=== PATIENT | male | born 1950 | race Hispanic/Latino ===

== ENCOUNTER 2016-11-19 15:19 | Emergency (ER) | payer OTHER ==
[2016-11-19 16:37] LABS: BASO % 0.8 % (0.0-1.0); EOS % 0.8 % (0.0-3.0); LARGE UNSTAINED CELL # 0.1 K/mm3 (0.0-0.4); LARGE UNSTAINED CELL % 2.3 % (0.0-4.0); LYMPH # 1.5 K/mm3 (1.5-4.5); LYMPH % 25.9 % (24.0-44.0); MEAN CORPUSCULAR HEMOGLOBIN 28.3 pg (27.0-33.0); MEAN CORPUSCULAR HGB CONC 33.1 g/dl (32.0-36.5); MEAN CORPUSCULAR VOLUME 85.5 fl (80.0-96.0); MONO # 0.2 K/mm3 (0.0-0.8); MONO % 3.6 % (0.0-5.0); NEUTROPHILS # 3.5 K/mm3 (1.8-7.7); NEUTROPHILS % 66.6 % (36.0-66.0); PLATELET COUNT, AUTOMATED 207 k/mm3 (150-450); RED CELL DISTRIBUTION WIDTH 15.1 % (11.5-14.5); WHITE BLOOD COUNT 5.3 K/mm3 (4.0-10.0)
[2016-11-19 16:40] LABS: INR 1.01
[2016-11-19] MEDS ORDERED: ASPIRIN 81 MG CHEW TABLET As Ordered ONE (16:45)
[2016-11-19 16:50] LABS: ANION GAP 10 MEQ/L (8-16); BLOOD UREA NITROGEN 13 MG/DL (7-18); CALCIUM LEVEL 9.4 MG/DL (8.8-10.2); CARBON DIOXIDE LEVEL 25 MEQ/L (21-32); CHLORIDE LEVEL 105 MEQ/L (98-107); CREATININE FOR GFR 0.99 MG/DL (0.70-1.30); GLOMERULAR FILTRATION RATE > 60.0 (>49); GLUCOSE, FASTING 150 MG/DL (80-110); SODIUM LEVEL 140 MEQ/L (136-145)
--- NOTE | 2016-11-19 17:08 | REP ---
Clinical: Chest pain. Technique: PA and lateral. Comparison: None. Findings: Chronic-appearing changes suggested with superimposed bilateral scattered atelectasis. Likely chronic elevation of the right hemidiaphragm. No pneumothorax. No definite effusion. Skeletal structures intact. Visualized mediastinum and cardiac silhouette normal. Impression: Chronic-appearing changes with suspected superimposed scattered atelectasis. Signed by Jean Evans MD 11/19/2016 05:00 P
[2016-11-19] MEDS ORDERED: MECLIZINE 12.5 MG TAB As Ordered ONE (17:21)
--- NOTE | 2016-11-19 20:18 | EDDOCDS ---
Physician Documentation [facility] Name: Singh Villarreal Age: 66 yrs Sex: Male : 1950 Arrival Date: 11/19/2016 Time: 15:19 Bed D1 Private MD: Unknown, Family Dr Disposition: 11/19/16 20:03 Discharged to Home/Self Care. Impression: Vertigo of central origin, Chest pain, unspecified. - Condition is Stable. - Discharge Instructions: Nonspecific Chest Pain, Vertigo. - Prescriptions for Meclizine 25 mg Oral Tablet - take 1 tablet by ORAL route every 8 hours As needed; 30 tablet. - Medication Reconciliation, Local Pharmacy Hours form. - Follow up: Private Physician; When: Call to arrange an appointment; Reason: Recheck today's complaints, Continuance of care. Follow up: Lei Chavez MD; When: Call to arrange an appointment; Reason: Further diagnostic work-up, Continuance of care. - Problem is new. - Symptoms are unchanged. Historical: - Allergies: Lisinopril; - Home Meds: 1. metformin 850 mg Oral tab 1 tab 2 times per day 2. omeprazole 20 mg Oral cpDR 1 cap once daily 3. Lipitor 10 mg Oral tab 1 tab once daily - PMHx: Diabetes - NIDDM: controlled; GERD; High Cholesterol; - PSHx: nasal surgery; - Social history: Smoking status: Patient states was never smoker of tobacco. No barriers to communication noted, The patient speaks fluent [place] Lankan. - Family history: Not pertinent. - : The pt / caregiver states he / she is not on anticoagulants. Home medication list is obtained from the patient. - Exposure Risk Screening:: None identified. Vital Signs: 11/19 15:21 BP 161 / 81; Pulse 75; Resp 18 S; Temp 97.2; Pulse Ox 98% on R/A; Weight 87.09 kg / 192 dd6 lbs (R); Height 5 ft. 8 in. (172.72 cm) (R); 17:00 Pulse 68 MON; Pulse Ox 97% ; ko2 17:01 BP 178 / 90 (auto/); ko2 17:16 BP 172 / 86 (auto/); ko2 17:16 Pulse 70 MON; Pulse Ox 97% ; ko2 17:31 BP 164 / 83 (auto/); ko2 17:31 Pulse 68 MON; Pulse Ox 97% ; ko2 17:46 BP 180 / 86 (auto/); ko2 17:46 Pulse 68 MON; Pulse Ox 98% ; ko2 18:01 BP 149 / 85 (auto/); ko2 18:01 Pulse 64 MON; Pulse Ox 98% ; ko2 18:15 Pulse 70 MON; Pulse Ox 97% ; ko2 18:16 BP 160 / 90 (auto/); ko2 18:31 BP 156 / 88 (auto/); ko2 18:31 Pulse 62 MON; Pulse Ox 96% ; ko2 19:00 Pulse 66 MON; Pulse Ox 97% ; ko2 19:01 BP 143 / 76 (auto/); ko2 19:02 BP 145 / 78 (auto/); ko2 19:02 Pulse 66 MON; Pulse Ox 96% ; ko2 19:16 Pulse 68 MON; Pulse Ox 96% ; ko2 19:17 BP 153 / 77 (auto/); ko2 19:32 BP 142 / 68 (auto/); ko2 19:32 Pulse 66 MON; Pulse Ox 96% ; ko2 20:07 BP 144 / 75 RA Sitting (auto/reg); Pulse 69 MON; Resp 22 S; Temp 97.2(T); Pulse Ox 97% cln on R/A; Pain 0/10; 15:21 Body Mass Index 29.19 (87.09 kg, 172.72 cm) dd6 MDM: 15:26 ECG WITH READING ER PHYS+CARDIAG ordered. EDMS 16:29 Aspirin Chewable Tablet 324 mg PO once ordered. ke 16:29 Rivet Catcher/Pulse Ox/q 30 min VS ordered. ke 16:29 IV Saline Lock ordered. ke 16:29 Rhythm Strip to chart ordered. ke 16:29 Undress patient appropriately for examination ordered. ke 16:29 Accucheck ordered. ke 16:29 NS 0.9% 1000 ml IV at 100 mL/hr continuous ordered. ke 16:30 Basic Metabolic Profile Ordered. EDMS 16:30 CBC with Diff Ordered. EDMS 16:30 Cardiac Injury Profile Ordered. EDMS 16:30 Prothrombin Time Profile\E\INR Ordered. EDMS 16:30 Troponin Ordered. EDMS 16:31 Chest, 2 View (pa\E\lat) Ordered. EDMS 17:02 Basic Metabolic Profile Reviewed. ke 17:02 CBC with Diff Reviewed. ke 17:02 Cardiac Injury Profile Reviewed. ke 17:02 Prothrombin Time Profile\E\INR Reviewed. ke 17:02 Troponin Reviewed. ke 17:03 Meclizine 50 mg PO once ordered. ke 17:04 Redraw CIP &Troponin (put time in details section) ordered. ke 17:04 Repeat EKG (put time details section) ordered. ke 17:05 Redraw CIP &Troponin (put time in details section) complete. deg 17:05 Repeat EKG (put time details section) complete. deg 17:06 ECG WITH READING ER PHYS ordered. EDMS 17:07 CARDIAC MARKER PANEL Ordered. EDMS 17:52 Financial registration complete. gjb 18:00 [facility] Payment Agreement was scanned into Transfer [employer] and attached to record. gjb 19:59 Fingerstick Blood Sugar Reviewed. ke 19:59 CARDIAC MARKER PANEL Reviewed. ke 19:59 Chest, 2 View (pa\E\lat) Reviewed. ke Administered Medications: 16:54 Drug: NS 0.9% 1000 ml [sodium chloride 0.9 % intravenous solution] Route: IV; Rate: 100 hs1 mL/hr; Site: right antecubital; 20:15 Follow up: Rate change bolus; IV Status: Completed infusion; IV Intake: 1000ml ka4 16:55 Drug: Aspirin 324 mg [aspirin 81 mg chewable tablet (4 tabs)] Route: PO; hs1 17:24 Drug: Meclizine 50 mg [meclizine 12.5 mg tablet (4 tabs)] Route: PO; kc3 20:15 Follow up: Response: No Adverse Reaction ka4 Signatures: Dispatcher [employer] EDJulia Avina, Salesperson [employer] deg Castillo Atkins, MEDICAL BILLING SUPERVISOR MEDICAL BILLING SUPERVISORKelly Schuler LPN LPN ka4 Blanca Maria,RN RN ms18 Jemima Maguireb Karen Sutton RN hs1 Lorelei Hardin RN kc3 The chart was reviewed and I authenticate all verbal orders and agree with the evaluation and treatment provided.Attachments: 18:00 [facility] Payment Agreement gj MTDD
--- NOTE | 2016-11-19 20:18 | EDDOCDS ---
Nurse's Notes [facility] Name: Singh Villarreal Age: 66 yrs Sex: Male : 1950 Arrival Date: 11/19/2016 Time: 15:19 Bed D1 Private MD: Unknown, Family Dr Diagnosis: Vertigo of central origin;Chest pain, unspecified Presentation: 11/19 15:26 Presenting complaint: Patient states: he is c/o L sided CP, dry mouth, dizziness that ms18 all started this morning. Aspirin was not taken prior to arrival. Adult Sepsis Screening: The patient does not have new or worsening altered mentation. Patient's respiratory rate is less than 22. Systolic blood pressure is greater than 100. Patient has a qSOFA score of 0- Negative Sepsis Screen. Suicide/Homicide risk assessment- the patient denies having any suicidal and/or homicidal ideations and does not present with any other emotional, behavioral or mental health complaints. 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 Transition of care: patient was not received from another setting of care. 15:26 Acuity: ISHAN Level 2 ms18 15:26 Method Of Arrival: Walkin/Carried/Asstd ms18 15:34 Red Flag criteria, patient assessed and taken directly to a bed. ms18 Triage Assessment: 15:32 General: Appears in no apparent distress, comfortable, Behavior is appropriate for age, ms18 cooperative. Pain: Denies pain. Neurological: Level of Consciousness is awake, alert, obeys commands, Oriented to person, place, time. Cardiovascular: Chest pain is described as mild, quality is pressure, radiates Does not radiate. episodes are continuous began this morning. Respiratory: Airway is patent Respiratory effort is even, unlabored, Denies shortness of breath. Derm: Skin is pink, warm & dry. Historical: - Allergies: Lisinopril; - Home Meds: 1. metformin 850 mg Oral tab 1 tab 2 times per day 2. omeprazole 20 mg Oral cpDR 1 cap once daily 3. Lipitor 10 mg Oral tab 1 tab once daily - PMHx: Diabetes - NIDDM: controlled; GERD; High Cholesterol; - PSHx: nasal surgery; - Social history: Smoking status: Patient states was never smoker of tobacco. No barriers to communication noted, The patient speaks fluent [place] African. - Family history: Not pertinent. - : The pt / caregiver states he / she is not on anticoagulants. Home medication list is obtained from the patient. - Exposure Risk Screening:: None identified. Screenin:40 Screening information is obtained from the patient. Fall risk: No risks identified. hs1 Assistance ADL's: requires no assistance with activities of daily living. Abuse/DV Screen: The patient / caregiver reports he/she is: not in a situation that causes fear, pain or injury. Nutritional screening: No deficits noted. Advance Directives: Currently, there is no health care proxy. home support is adequate. Assessment: 15:30 General: Appears comfortable, Behavior is appropriate for age, cooperative. hs1 Neurological: Level of Consciousness is awake, alert, obeys commands, Oriented to person, place, time, Reports "feeling like my equilibrium is off". Cardiovascular: Rhythm is sinus rhythm No ectopy. Chest pain is described as mild, quality is indigestion. Respiratory: Airway is patent Respiratory effort is even, unlabored, Respiratory pattern is regular, symmetrical. : No deficits noted. Derm: Skin is pink, warm & dry. normal. 16:42 General: Appears in no apparent distress, comfortable, Behavior is appropriate for age, hs1 cooperative, Resting on stretcher awaiting further plan of care. Pt states mild pain in chest, not very bothersome however feeling woozy every time he moves his neck and changes his view. . 17:15 Reassessment: Patient appears in no apparent distress at this time. Pt aware of plan hs1 and is agreeable to all interventions. Pt still reports pain 3/10 mild discomfort in chest. Sinus rhythm on monitor. . 18:00 Reassessment: Patient appears in no apparent distress at this time. Patient states hs1 feeling better. Patient states symptoms have improved. Pt feeling better after receiving medications. . 19:42 General: Appears in no apparent distress, comfortable, Behavior is appropriate for age, ko2 cooperative. Pain: Denies pain. Neurological: Level of Consciousness is awake, alert, obeys commands, Reports the dizziness has gotten better since taking the medication but pt is still a little dizzy. Cardiovascular: Rhythm is sinus rhythm No ectopy. Chest pain is denied. Respiratory: Airway is patent Respiratory effort is even, unlabored. Derm: Skin is normal. Vital Signs: 15:21 BP 161 / 81; Pulse 75; Resp 18 S; Temp 97.2; Pulse Ox 98% on R/A; Weight 87.09 kg (R); dd6 Height 5 ft. 8 in. (172.72 cm) (R); 17:00 Pulse 68 MON; Pulse Ox 97% ; ko2 17:01 BP 178 / 90 (auto/); ko2 17:16 BP 172 / 86 (auto/); ko2 17:16 Pulse 70 MON; Pulse Ox 97% ; ko2 17:31 BP 164 / 83 (auto/); ko2 17:31 Pulse 68 MON; Pulse Ox 97% ; ko2 17:46 BP 180 / 86 (auto/); ko2 17:46 Pulse 68 MON; Pulse Ox 98% ; ko2 18:01 BP 149 / 85 (auto/); ko2 18:01 Pulse 64 MON; Pulse Ox 98% ; ko2 18:15 Pulse 70 MON; Pulse Ox 97% ; ko2 18:16 BP 160 / 90 (auto/); ko2 18:31 BP 156 / 88 (auto/); ko2 18:31 Pulse 62 MON; Pulse Ox 96% ; ko2 19:00 Pulse 66 MON; Pulse Ox 97% ; ko2 19:01 BP 143 / 76 (auto/); ko2 19:02 BP 145 / 78 (auto/); ko2 19:02 Pulse 66 MON; Pulse Ox 96% ; ko2 19:16 Pulse 68 MON; Pulse Ox 96% ; ko2 19:17 BP 153 / 77 (auto/); ko2 19:32 BP 142 / 68 (auto/); ko2 19:32 Pulse 66 MON; Pulse Ox 96% ; ko2 20:07 BP 144 / 75 RA Sitting (auto/reg); Pulse 69 MON; Resp 22 S; Temp 97.2(T); Pulse Ox 97% cln on R/A; Pain 0/10; 15:21 Body Mass Index 29.19 (87.09 kg, 172.72 cm) dd6 Vitals: 15:21 Log In Time: November 19, 2016 at 15:19. RN notified that patient meets Red Flag dd6 criteria. ED Course: 15:20 Patient visited by Quinn Rapp PCA. dd6 15:20 Unknown, Family Dr is Private Physician. dd6 15:20 Patient moved to Waiting dd6 15:23 Patient moved to 9 ms18 15:25 Patient visited by Blanca Maria RN. ms18 15:27 Triage Initiated ms18 15:27 Placed in gown. Bed in low position. Call light in reach. Side rails up X2. nb2 15:27 EKG done. (by ED staff). Reviewed by Katia Delgado MD. nb2 15:37 Patient visited by Saskia Robbins. nb2 16:19 [facility] ke 16:19 Patient visited by Castillo Atkins FNP. ke 16:19 Patient visited by Castillo Atkins FNP. ke 16:41 Patient visited by Castillo Atkins FNP. ke 17:04 Patient visited by Castillo Atkins FNP. ke 17:26 Chest, 2 View (pa\\E\\lat) Returned. EDMS 17:35 Patient visited by Castillo Atkins FNP. ke 18:00 [facility] Payment Agreement was scanned into [employer] and attached to record. gjb 18:06 Patient visited by Castillo Atkins FNP. ke 18:35 Patient name changed from Singh\\S\\\\S\\Villarreal\\S\\ to Singh\\S\\A\\S\\Villarreal. EDMS 18:36 Patient visited by Castillo Atkins FNP. ke 18:52 CARDIAC MARKER PANEL Sent. jmk 18:57 EKG done. (by ED staff). Reviewed by Castillo MESA. nb2 19:02 Patient visited by Saskia Robbins. nb2 19:03 Lesa Dodson RN is Primary Nurse. ko2 19:42 Patient visited by Lesa Dodson,SERGIO. ko2 19:44 Patient visited by Lesa Dodson,SERGIO. ko2 20:02 Lei Chavez MD is Referral Physician. ke 20:05 Patient visited by Amanda Navarro PCA. cln 20:08 Patient visited by Amanda Navarro PCA. cln 20:16 The patient / caregiver is instructed regarding the plan of care and ED course. Cardiac ka4 monitor on. Pulse ox on. 20:16 Discontinued IV lock intact, bleeding controlled, pressure dressing applied, No ka4 redness/swelling at site. Discontinued removed from right antecubital. No procedures done that require assistance. 20:17 Patient moved to D1 cz Administered Medications: 16:54 Drug: NS 0.9% 1000 ml [sodium chloride 0.9 % intravenous solution] Route: IV; Rate: 100 hs1 mL/hr; Site: right antecubital; 20:15 Follow up: Rate change bolus; IV Status: Completed infusion; IV Intake: 1000ml ka4 16:55 Drug: Aspirin 324 mg [aspirin 81 mg chewable tablet (4 tabs)] Route: PO; hs1 17:24 Drug: Meclizine 50 mg [meclizine 12.5 mg tablet (4 tabs)] Route: PO; kc3 20:15 Follow up: Response: No Adverse Reaction ka4 Intake: 20:15 IV: 1000.00ml; Total: 1000.00ml. ka4 Order Results: Lab Order: Basic Metabolic Profile; BOO 11/19/16 15:35 Test: GLUCOSE, FASTING; Value: 150; Range: 80-110; Abnormal: Above high normal; Units: MG/DL; Status: F Test: BLOOD UREA NITROGEN; Value: 13; Range: 7-18; Units: MG/DL; Status: F Test: CREATININE FOR GFR; Value: 0.99; Range: 0.70-1.30; Units: MG/DL; Status: F Test: GLOMERULAR FILTRATION RATE; Value: > 60.0; Range: >49; Status: F Test: SODIUM LEVEL; Value: 140; Range: 136-145; Units: MEQ/L; Status: F Test: POTASSIUM SERUM; Value: 4.0; Range: 3.5-5.1; Units: MEQ/L; Status: F Test: CHLORIDE LEVEL; Value: 105; Range: 98-107; Units: MEQ/L; Status: F Test: CARBON DIOXIDE LEVEL; Value: 25; Range: 21-32; Units: MEQ/L; Status: F Test: ANION GAP; Value: 10; Range: 8-16; Units: MEQ/L; Status: F Test: CALCIUM LEVEL; Value: 9.4; Range: 8.8-10.2; Units: MG/DL; Status: F Test Note: ; Units are mL/min/1.73 m2 Chronic Kidney Disease Staging per NKF: Stage I & II GFR >=60 Normal to Mildly Decreased Stage III GFR 30-59 Moderately Decreased Stage IV GFR 15-29 Severely Decreased Stage V GFR <15 Very Little GFR Left ESRD GFR <15 on MAGAZINE JOURNALIST Lab Order: CBC with Diff; MOISE'M 11/19/16 15:35 Test: WHITE BLOOD COUNT; Value: 5.3; Range: 4.0-10.0; Units: K/mm3; Status: F Test: RED BLOOD COUNT; Value: 5.00; Range: 4.30-6.10; Units: M/mm3; Status: F Test: HEMOGLOBIN; Value: 14.2; Range: 14.0-18.0; Units: g/dl; Status: F Test: HEMATOCRIT; Value: 42.8; Range: 42.0-52.0; Units: %; Status: F Test: MEAN CORPUSCULAR VOLUME; Value: 85.5; Range: 80.0-96.0; Units: fl; Status: F Test: MEAN CORPUSCULAR HEMOGLOBIN; Value: 28.3; Range: 27.0-33.0; Units: pg; Status: F Test: MEAN CORPUSCULAR HGB CONC; Value: 33.1; Range: 32.0-36.5; Units: g/dl; Status: F Test: RED CELL DISTRIBUTION WIDTH; Value: 15.1; Range: 11.5-14.5; Abnormal: Above high normal; Units: %; Status: F Test: PLATELET COUNT, AUTOMATED; Value: 207; Range: 150-450; Units: k/mm3; Status: F Test: NEUTROPHILS %; Value: 66.6; Range: 36.0-66.0; Abnormal: Above high normal; Units: %; Status: F Test: LYMPH %; Value: 25.9; Range: 24.0-44.0; Units: %; Status: F Test: MONO %; Value: 3.6; Range: 0.0-5.0; Units: %; Status: F Test: EOS %; Value: 0.8; Range: 0.0-3.0; Units: %; Status: F Test: BASO %; Value: 0.8; Range: 0.0-1.0; Units: %; Status: F Test: LARGE UNSTAINED CELL %; Value: 2.3; Range: 0.0-4.0; Units: %; Status: F Test: NEUTROPHILS #; Value: 3.5; Range: 1.8-7.7; Units: K/mm3; Status: F Test: LYMPH #; Value: 1.5; Range: 1.5-4.5; Units: K/mm3; Status: F Test: MONO #; Value: 0.2; Range: 0.0-0.8; Units: K/mm3; Status: F Test: EOS #; Value: 0.0; Range: 0.0-0.50; Units: K/mm3; Status: F Test: BASO #; Value: 0.0; Range: 0.0-0.2; Units: K/mm3; Status: F Test: LARGE UNSTAINED CELL #; Value: 0.1; Range: 0.0-0.4; Units: K/mm3; Status: F Lab Order: Cardiac Injury Profile; SPEC' 11/19/16 15:35 Test: CPK CREATINE PHOSPHOKINASE; Value: 216; Range: 39-308; Units: U/L; Status: F Test: CK-MB VALUE MASS; Value: 1.6; Range: 0.0-3.6; Units: NG/ML; Status: F Test: MB/CK RELATIVE INDEX; Value: 0.74; Range: < OR =4; Status: F Test Note: ; DIAGNOSIS CRITERIA MMB ng/ml Relative Index (RI) NON-AMI < or = 5 N/A GOMEZ ZONE > 5 < or = 4 AMI > 5 > 4 Lab Order: Prothrombin Time Profile\\E\\INR; SPEC' 11/19/16 15:35 Test: PROTHROMBIN TIME; Value: 13.4; Range: 12.3-14.5; Units: SECONDS; Status: F Test: INR; Value: 1.01; Status: F Test Note: ; THERAPUTIC HUMAN INR VALUES INDICATIONS NORMAL RANGES PROPHYLAXIS/TREATMENT OF: VENOUS THROMBOSIS 2.0-3.0 PULMONARY EMBOLISM 2.0-3.0 PREVENTION OF SYSTEMIC EMBOLISM FROM: TISSUE HEART VALVES 2.0-3.0 ACUTE MYOCARDIAL INFARCTION 2.0-3.0 VALVULAR HEART DISEASE 2.0-3.0 ATRIAL FIBRILLATION 2.0-3.0 MECHANICAL VALVES(HIGH RISK) 2.5-3.5 RECURRENT MYOCARDIAL INFARCTION 2.5-3.5 Lab Order: Troponin; [facility]' 11/19/16 15:35 Test: TROPONIN I; Value: < 0.02; Range: < 0.10; Units: NG/ML; Status: F Test Note: ; Troponin I Reference Interval for Siemens [place] LOCI: 99th Percentile= 0.00-0.045 ng/ml Risk Stratification: <= 0.10 ng/ml Decreased Risk for Adverse Clinical Events. 0.10-1.50 ng/ml Increased Risk for Adverse Clinical Events. Evaluation of additional criterion and/or repeat testing in 2-6 hours is suggested to rule out myocardial damage. >= 1.50 ng/ml Indicative of Myocardial Injury. Lab Order: CARDIAC MARKER PANEL; [facility] 11/19/16 18:50 Test: CPK CREATINE PHOSPHOKINASE; Value: 174; Range: 39-308; Units: U/L; Status: F Test: CK-MB VALUE MASS; Value: 1.5; Range: 0.0-3.6; Units: NG/ML; Status: F Test: MB/CK RELATIVE INDEX; Value: 0.86; Range: < OR =4; Status: F Test: TROPONIN I; Value: < 0.02; Range: < 0.10; Units: NG/ML; Status: F Test Note: ; DIAGNOSIS CRITERIA MMB ng/ml Relative Index (RI) NON-AMI < or = 5 N/A GOMEZ ZONE > 5 < or = 4 AMI > 5 > 4 Lab Order: Fingerstick Blood Sugar; [facility] 11/19/16 17:01 Test: BEDSIDE GLUCOSE; Value: 120; Range: 80-115; Abnormal: Above high normal; Units: MG/DL; Status: F Radiology Order: Chest, 2 View (pa\\E\\lat) Test: Chest, 2 View (pa\\E\\lat) REASON FOR EXAMINATION: Chest Pain; Clinical: Chest pain.; ; Technique: PA and lateral.; ; Comparison: None.; ; Findings:; Chronic-appearing changes suggested with superimposed bilateral scattered; atelectasis. Likely chronic elevation of the right hemidiaphragm. No; pneumothorax. No definite effusion. Skeletal structures intact. Visualized; mediastinum and cardiac silhouette normal.; ; Impression:; Chronic-appearing changes with suspected superimposed scattered atelectasis.; ; ; Signed by; Jean Evans MD 11/19/2016 05:00 P; Outcome: 20:03 Discharge ordered by Provider. ke 20:14 Discharge Assessment: Patient awake, alert and oriented x 3. No cognitive and/or ka4 functional deficits noted. Patient verbalized understanding of disposition instructions. patient administered narcotics - no. The following High Risk Discharge criteria are identified: None. Discharged to home ambulatory. Condition: good. Discharge instructions given to patient, Instructed on discharge instructions, follow up and referral plans. medication usage, Demonstrated understanding of instructions, medications, Pt was receptive of discharge instructions/ teaching. Property :Personal belongings accompany Pt. 20:16 No special radiology studies were completed. ka4 20:17 Patient left the ED. ka4 Signatures: Dispatcher [employer] EDMS Sharath Martinez,RN RN Moris Gonzalez, RN RN cz Castillo Atkins, PHD INTERNSHIP PHD INTERNSHIP Quinn Rich, [employer] FIELD TECHNICIAN [employer] FIELD TECHNICIAN dd6 Karen Sutton RN RN hs1 Kelly Redding LPN SCIENTIFIC SOFTWARE ENGINEER ka4 Lesa Dodson,RN RN ko2 Blanca Maria,RN RN ms18 Lorelei Hardin,RN RN tanya3 Jemima Maguire Crystal, [employer] FIELD TECHNICIAN [employer] FIELD TECHNICIAN cln Saskia Robbins2 MTDD
--- NOTE | 2016-11-20 08:08 | ECGEPIP ---
Stationary ECG Study [facility] - ED Test Date: 2016-11-19 Pat Name: JIHAN FRANCO Department: Room: - Gender: M Project Architect: ledy : 1950 Requested By: FADUMO Jeff Order Number: [id number] Reading MD: Melanie Mayo Measurements Intervals [place] Rate: 73 P: 7 WA: 160 QRS: -5 QRSD: 97 T: 4 QT: 402 QTc: 444 Interpretive Statements SINUS RHYTHM MODERATE VOLTAGE CRITERIA FOR LVH, CONSIDER NORMAL VARIANT INFERIOR MYOCARDIAL INFARCTION, PROBABLY OLD NSTTW ABNORMALITY NO PRIOR FOR COMPARISON Electronically Signed On 11-20-2016 8:08:12 EST by Melanie Mayo
--- NOTE | 2016-11-20 08:12 | ECGEPIP ---
Stationary ECG Study [facility] - ED Test Date: 2016-11-19 Pat Name: JIHAN FRANCO Department: Room: - Gender: M Avian Keeper: ledy : 1950 Requested By: VAUGHN MESA Order Number: [id number] Reading MD: Melanie Mayo Measurements Intervals [place] Rate: 63 P: 18 VT: 201 QRS: -5 QRSD: 92 T: 11 QT: 421 QTc: 433 Interpretive Statements SINUS RHYTHM MODERATE VOLTAGE CRITERIA FOR LVH, CONSIDER NORMAL VARIANT ?INFERIOR RI, OLD NSTTW ABNORMALITY DECREASED RATE 11/19/16 Electronically Signed On 11-20-2016 8:12:27 EST by Melanie Mayo
--- NOTE | 2016-11-21 21:18 | EDDOCDS ---
Physician Documentation [facility] Name: Singh Villarreal Age: 66 yrs Sex: Male : 1950 Arrival Date: 11/19/2016 Time: 15:19 Bed D1 Private MD: Unknown, Family Dr Disposition: 11/19/16 20:03 Discharged to Home/Self Care. Impression: Vertigo of central origin, Chest pain, unspecified. - Condition is Stable. - Discharge Instructions: Nonspecific Chest Pain, Vertigo. - Prescriptions for Meclizine 25 mg Oral Tablet - take 1 tablet by ORAL route every 8 hours As needed; 30 tablet. - Medication Reconciliation, Local Pharmacy Hours form. - Follow up: Private Physician; When: Call to arrange an appointment; Reason: Recheck today's complaints, Continuance of care. Follow up: Lei Chavez MD; When: Call to arrange an appointment; Reason: Further diagnostic work-up, Continuance of care. - Problem is new. - Symptoms are unchanged. Historical: - Allergies: Lisinopril; - Home Meds: 1. metformin 850 mg Oral tab 1 tab 2 times per day 2. omeprazole 20 mg Oral cpDR 1 cap once daily 3. Lipitor 10 mg Oral tab 1 tab once daily - PMHx: Diabetes - NIDDM: controlled; GERD; High Cholesterol; - PSHx: nasal surgery; - Social history: Smoking status: Patient states was never smoker of tobacco. No barriers to communication noted, The patient speaks fluent Faroese. - Family history: Not pertinent. - : The pt / caregiver states he / she is not on anticoagulants. Home medication list is obtained from the patient. - Exposure Risk Screening:: None identified. Vital Signs: 11/19 15:21 BP 161 / 81; Pulse 75; Resp 18 S; Temp 97.2; Pulse Ox 98% on R/A; Weight 87.09 kg / 192 dd6 lbs (R); Height 5 ft. 8 in. (172.72 cm) (R); 17:00 Pulse 68 MON; Pulse Ox 97% ; ko2 17:01 BP 178 / 90 (auto/); ko2 17:16 BP 172 / 86 (auto/); ko2 17:16 Pulse 70 MON; Pulse Ox 97% ; ko2 17:31 BP 164 / 83 (auto/); ko2 17:31 Pulse 68 MON; Pulse Ox 97% ; ko2 17:46 BP 180 / 86 (auto/); ko2 17:46 Pulse 68 MON; Pulse Ox 98% ; ko2 18:01 BP 149 / 85 (auto/); ko2 18:01 Pulse 64 MON; Pulse Ox 98% ; ko2 18:15 Pulse 70 MON; Pulse Ox 97% ; ko2 18:16 BP 160 / 90 (auto/); ko2 18:31 BP 156 / 88 (auto/); ko2 18:31 Pulse 62 MON; Pulse Ox 96% ; ko2 19:00 Pulse 66 MON; Pulse Ox 97% ; ko2 19:01 BP 143 / 76 (auto/); ko2 19:02 BP 145 / 78 (auto/); ko2 19:02 Pulse 66 MON; Pulse Ox 96% ; ko2 19:16 Pulse 68 MON; Pulse Ox 96% ; ko2 19:17 BP 153 / 77 (auto/); ko2 19:32 BP 142 / 68 (auto/); ko2 19:32 Pulse 66 MON; Pulse Ox 96% ; ko2 20:07 BP 144 / 75 RA Sitting (auto/reg); Pulse 69 MON; Resp 22 S; Temp 97.2(T); Pulse Ox 97% cln on R/A; Pain 0/10; 15:21 Body Mass Index 29.19 (87.09 kg, 172.72 cm) dd6 MDM: 15:26 ECG WITH READING ER PHYS+CARDIAG ordered. EDMS 16:29 Aspirin Chewable Tablet 324 mg PO once ordered. ke 16:29 Compressed Gas Equipment Mechanic/Pulse Ox/q 30 min VS ordered. ke 16:29 IV Saline Lock ordered. ke 16:29 Rhythm Strip to chart ordered. ke 16:29 Undress patient appropriately for examination ordered. ke 16:29 Accucheck ordered. ke 16:29 NS 0.9% 1000 ml IV at 100 mL/hr continuous ordered. ke 16:30 Basic Metabolic Profile Ordered. EDMS 16:30 CBC with Diff Ordered. EDMS 16:30 Cardiac Injury Profile Ordered. EDMS 16:30 Prothrombin Time Profile\E\INR Ordered. EDMS 16:30 Troponin Ordered. EDMS 16:31 Chest, 2 View (pa\E\lat) Ordered. EDMS 17:02 Basic Metabolic Profile Reviewed. ke 17:02 CBC with Diff Reviewed. ke 17:02 Cardiac Injury Profile Reviewed. ke 17:02 Prothrombin Time Profile\E\INR Reviewed. ke 17:02 Troponin Reviewed. ke 17:03 Meclizine 50 mg PO once ordered. ke 17:04 Redraw CIP &Troponin (put time in details section) ordered. ke 17:04 Repeat EKG (put time details section) ordered. ke 17:05 Redraw CIP &Troponin (put time in details section) complete. deg 17:05 Repeat EKG (put time details section) complete. deg 17:06 ECG WITH READING ER PHYS ordered. EDMS 17:07 CARDIAC MARKER PANEL Ordered. EDMS 17:52 Financial registration complete. gjb 18:00 [facility] [place] Payment Agreement was scanned into [employer] and attached to record. gjb 19:59 Fingerstick Blood Sugar Reviewed. ke 19:59 CARDIAC MARKER PANEL Reviewed. ke 19:59 Chest, 2 View (pa\E\lat) Reviewed. ke 11/20 03:47 T-Sheet-- Draft Copy was scanned into [employer] and attached to record. hs2 10:26 ECG/EKG was scanned into [employer] and attached to record. gb Administered Medications: 11/19 16:54 Drug: NS 0.9% 1000 ml [sodium chloride 0.9 % intravenous solution] Route: IV; Rate: 100 hs1 mL/hr; Site: right antecubital; 20:15 Follow up: Rate change bolus; IV Status: Completed infusion; IV Intake: 1000ml ka4 16:55 Drug: Aspirin 324 mg [aspirin 81 mg chewable tablet (4 tabs)] Route: PO; hs1 17:24 Drug: Meclizine 50 mg [meclizine 12.5 mg tablet (4 tabs)] Route: PO; kc3 20:15 Follow up: Response: No Adverse Reaction ka4 Signatures: Dispatcher [employer] EDMS Julia Baltazar, Medical Records Analyst Unit deg Malaika Dubon, Reg Reg gb Castillo Atkins, POKER SUPERVISOR POKER SUPERVISOR Kelly Wallace,STEEL CHECKER STEEL CHECKER ka4 Blanca Maria,SERGIO RN ms18 Jemima Maguire gjb Elizabeth Breaux, Reg Reg hs2 Karen Sutton RN hs1 Lorelei Hardin RN kc3 The chart was reviewed and I authenticate all verbal orders and agree with the evaluation and treatment provided.Attachments: 18:00 [facility] Payment Agreement gjb 11/20 03:47 T-Sheet-- Draft Copy hs2 10:26 ECG/EKG gb Chart Complete MTDD
--- NOTE | 2016-11-21 21:18 | EDDOCDS ---
Nurse's Notes [facility] Name: Singh Villarreal Age: 66 yrs Sex: Male : 1950 Arrival Date: 11/19/2016 Time: 15:19 Bed D1 Private MD: Unknown, Family Dr Diagnosis: Vertigo of central origin;Chest pain, unspecified Presentation: 11/19 15:26 Presenting complaint: Patient states: he is c/o L sided CP, dry mouth, dizziness that ms18 all started this morning. Aspirin was not taken prior to arrival. Adult Sepsis Screening: The patient does not have new or worsening altered mentation. Patient's respiratory rate is less than 22. Systolic blood pressure is greater than 100. Patient has a qSOFA score of 0- Negative Sepsis Screen. Suicide/Homicide risk assessment- the patient denies having any suicidal and/or homicidal ideations and does not present with any other emotional, behavioral or mental health complaints. Status: Patient is not a dietary services director or dependent. Transition of care: patient was not received from another setting of care. 15:26 Acuity: ISHAN Level 2 ms18 15:26 Method Of Arrival: Walkin/Carried/Asstd ms18 15:34 Red Flag criteria, patient assessed and taken directly to a bed. ms18 Triage Assessment: 15:32 General: Appears in no apparent distress, comfortable, Behavior is appropriate for age, ms18 cooperative. Pain: Denies pain. Neurological: Level of Consciousness is awake, alert, obeys commands, Oriented to person, place, time. Cardiovascular: Chest pain is described as mild, quality is pressure, radiates Does not radiate. episodes are continuous began this morning. Respiratory: Airway is patent Respiratory effort is even, unlabored, Denies shortness of breath. Derm: Skin is pink, warm & dry. Historical: - Allergies: Lisinopril; - Home Meds: 1. metformin 850 mg Oral tab 1 tab 2 times per day 2. omeprazole 20 mg Oral cpDR 1 cap once daily 3. Lipitor 10 mg Oral tab 1 tab once daily - PMHx: Diabetes - NIDDM: controlled; GERD; High Cholesterol; - PSHx: nasal surgery; - Social history: Smoking status: Patient states was never smoker of tobacco. No barriers to communication noted, The patient speaks fluent Wallisian. - Family history: Not pertinent. - : The pt / caregiver states he / she is not on anticoagulants. Home medication list is obtained from the patient. - Exposure Risk Screening:: None identified. Screenin:40 Screening information is obtained from the patient. Fall risk: No risks identified. hs1 Assistance ADL's: requires no assistance with activities of daily living. Abuse/DV Screen: The patient / caregiver reports he/she is: not in a situation that causes fear, pain or injury. Nutritional screening: No deficits noted. Advance Directives: Currently, there is no health care proxy. home support is adequate. Assessment: 15:30 General: Appears comfortable, Behavior is appropriate for age, cooperative. hs1 Neurological: Level of Consciousness is awake, alert, obeys commands, Oriented to person, place, time, Reports "feeling like my equilibrium is off". Cardiovascular: Rhythm is sinus rhythm No ectopy. Chest pain is described as mild, quality is indigestion. Respiratory: Airway is patent Respiratory effort is even, unlabored, Respiratory pattern is regular, symmetrical. : No deficits noted. Derm: Skin is pink, warm & dry. normal. 16:42 General: Appears in no apparent distress, comfortable, Behavior is appropriate for age, hs1 cooperative, Resting on stretcher awaiting further plan of care. Pt states mild pain in chest, not very bothersome however feeling woozy every time he moves his neck and changes his view. . 17:15 Reassessment: Patient appears in no apparent distress at this time. Pt aware of plan hs1 and is agreeable to all interventions. Pt still reports pain 3/10 mild discomfort in chest. Sinus rhythm on monitor. . 18:00 Reassessment: Patient appears in no apparent distress at this time. Patient states hs1 feeling better. Patient states symptoms have improved. Pt feeling better after receiving medications. . 19:42 General: Appears in no apparent distress, comfortable, Behavior is appropriate for age, ko2 cooperative. Pain: Denies pain. Neurological: Level of Consciousness is awake, alert, obeys commands, Reports the dizziness has gotten better since taking the medication but pt is still a little dizzy. Cardiovascular: Rhythm is sinus rhythm No ectopy. Chest pain is denied. Respiratory: Airway is patent Respiratory effort is even, unlabored. Derm: Skin is normal. Vital Signs: 15:21 BP 161 / 81; Pulse 75; Resp 18 S; Temp 97.2; Pulse Ox 98% on R/A; Weight 87.09 kg (R); dd6 Height 5 ft. 8 in. (172.72 cm) (R); 17:00 Pulse 68 MON; Pulse Ox 97% ; ko2 17:01 BP 178 / 90 (auto/); ko2 17:16 BP 172 / 86 (auto/); ko2 17:16 Pulse 70 MON; Pulse Ox 97% ; ko2 17:31 BP 164 / 83 (auto/); ko2 17:31 Pulse 68 MON; Pulse Ox 97% ; ko2 17:46 BP 180 / 86 (auto/); ko2 17:46 Pulse 68 MON; Pulse Ox 98% ; ko2 18:01 BP 149 / 85 (auto/); ko2 18:01 Pulse 64 MON; Pulse Ox 98% ; ko2 18:15 Pulse 70 MON; Pulse Ox 97% ; ko2 18:16 BP 160 / 90 (auto/); ko2 18:31 BP 156 / 88 (auto/); ko2 18:31 Pulse 62 MON; Pulse Ox 96% ; ko2 19:00 Pulse 66 MON; Pulse Ox 97% ; ko2 19:01 BP 143 / 76 (auto/); ko2 19:02 BP 145 / 78 (auto/); ko2 19:02 Pulse 66 MON; Pulse Ox 96% ; ko2 19:16 Pulse 68 MON; Pulse Ox 96% ; ko2 19:17 BP 153 / 77 (auto/); ko2 19:32 BP 142 / 68 (auto/); ko2 19:32 Pulse 66 MON; Pulse Ox 96% ; ko2 20:07 BP 144 / 75 RA Sitting (auto/reg); Pulse 69 MON; Resp 22 S; Temp 97.2(T); Pulse Ox 97% cln on R/A; Pain 0/10; 15:21 Body Mass Index 29.19 (87.09 kg, 172.72 cm) dd6 Vitals: 15:21 Log In Time: November 19, 2016 at 15:19. RN notified that patient meets Red Flag dd6 criteria. ED Course: 15:20 Patient visited by Quinn Rapp PCA. dd6 15:20 Unknown, Family Dr is Private Physician. dd6 15:20 Patient moved to Waiting dd6 15:23 Patient moved to 9 ms18 15:25 Patient visited by Blanca Maria RN. ms18 15:27 Triage Initiated ms18 15:27 Placed in gown. Bed in low position. Call light in reach. Side rails up X2. nb2 15:27 EKG done. (by ED staff). Reviewed by Katia Delgado MD. nb2 15:37 Patient visited by Saskia Robbins. nb2 16:19 Castillo Atkins FNP [facility]. ke 16:19 Patient visited by Castillo Atkins FNP. ke 16:19 Patient visited by Castillo Atkins FNP. ke 16:41 Patient visited by Castillo Atkins FNP. ke 17:04 Patient visited by Castillo Atkins FNP. ke 17:26 Chest, 2 View (pa\\E\\lat) Returned. EDMS 17:35 Patient visited by Castillo Atkins FNP. ke 18:00 [facility] Payment Agreement was scanned into [employer] and attached to record. gjb 18:06 Patient visited by Castillo Atkins FNP. ke 18:35 Patient name changed from Singh\\S\\\\S\\Villarreal\\S\\ to Singh\\S\\A\\S\\Villarreal. EDMS 18:36 Patient visited by Castillo Atkins FNP. ke 18:52 CARDIAC MARKER PANEL Sent. jmk 18:57 EKG done. (by ED staff). Reviewed by Castillo MESA. nb2 19:02 Patient visited by Saskia Robbins. nb2 19:03 Lesa Dodson RN is Primary Nurse. ko2 19:42 Patient visited by Lesa Dodson,SERGIO. ko2 19:44 Patient visited by Lesa Dodson,SERGIO. ko2 20:02 Lei Chavez MD is Referral Physician. ke 20:05 Patient visited by Amanda Navarro PCA. cln 20:08 Patient visited by Amanda Navarro PCA. cln 20:16 The patient / caregiver is instructed regarding the plan of care and ED course. Cardiac ka4 monitor on. Pulse ox on. 20:16 Discontinued IV lock intact, bleeding controlled, pressure dressing applied, No ka4 redness/swelling at site. Discontinued removed from right antecubital. No procedures done that require assistance. 20:17 Patient moved to D1 11/20 03:47 T-Sheet-- Draft Copy was scanned into [employer] and attached to record. hs2 08:36 EKG-ADULT Returned. EDMS 08:36 ECG WITH READING ER PHYS Returned. EDMS 10:26 ECG/EKG was scanned into [employer] and attached to record. gb Administered Medications: 11/19 16:54 Drug: NS 0.9% 1000 ml [sodium chloride 0.9 % intravenous solution] Route: IV; Rate: 100 hs1 mL/hr; Site: right antecubital; 20:15 Follow up: Rate change bolus; IV Status: Completed infusion; IV Intake: 1000ml ka4 16:55 Drug: Aspirin 324 mg [aspirin 81 mg chewable tablet (4 tabs)] Route: PO; hs1 17:24 Drug: Meclizine 50 mg [meclizine 12.5 mg tablet (4 tabs)] Route: PO; kc3 20:15 Follow up: Response: No Adverse Reaction ka4 Intake: 20:15 IV: 1000.00ml; Total: 1000.00ml. ka4 Order Results: Lab Order: Basic Metabolic Profile; SPEC'M 11/19/16 15:35 Test: GLUCOSE, FASTING; Value: 150; Range: 80-110; Abnormal: Above high normal; Units: MG/DL; Status: F Test: BLOOD UREA NITROGEN; Value: 13; Range: 7-18; Units: MG/DL; Status: F Test: CREATININE FOR GFR; Value: 0.99; Range: 0.70-1.30; Units: MG/DL; Status: F Test: GLOMERULAR FILTRATION RATE; Value: > 60.0; Range: >49; Status: F Test: SODIUM LEVEL; Value: 140; Range: 136-145; Units: MEQ/L; Status: F Test: POTASSIUM SERUM; Value: 4.0; Range: 3.5-5.1; Units: MEQ/L; Status: F Test: CHLORIDE LEVEL; Value: 105; Range: 98-107; Units: MEQ/L; Status: F Test: CARBON DIOXIDE LEVEL; Value: 25; Range: 21-32; Units: MEQ/L; Status: F Test: ANION GAP; Value: 10; Range: 8-16; Units: MEQ/L; Status: F Test: CALCIUM LEVEL; Value: 9.4; Range: 8.8-10.2; Units: MG/DL; Status: F Test Note: ; Units are mL/min/1.73 m2 Chronic Kidney Disease Staging per NKF: Stage I & II GFR >=60 Normal to Mildly Decreased Stage III GFR 30-59 Moderately Decreased Stage IV GFR 15-29 Severely Decreased Stage V GFR <15 Very Little GFR Left ESRD GFR <15 on CHAMBER [employer] DIVISION MANAGER Lab Order: CBC with Diff; SPEC'M 11/19/16 15:35 Test: WHITE BLOOD COUNT; Value: 5.3; Range: 4.0-10.0; Units: K/mm3; Status: F Test: RED BLOOD COUNT; Value: 5.00; Range: 4.30-6.10; Units: M/mm3; Status: F Test: HEMOGLOBIN; Value: 14.2; Range: 14.0-18.0; Units: g/dl; Status: F Test: HEMATOCRIT; Value: 42.8; Range: 42.0-52.0; Units: %; Status: F Test: MEAN CORPUSCULAR VOLUME; Value: 85.5; Range: 80.0-96.0; Units: fl; Status: F Test: MEAN CORPUSCULAR HEMOGLOBIN; Value: 28.3; Range: 27.0-33.0; Units: pg; Status: F Test: MEAN CORPUSCULAR HGB CONC; Value: 33.1; Range: 32.0-36.5; Units: g/dl; Status: F Test: RED CELL DISTRIBUTION WIDTH; Value: 15.1; Range: 11.5-14.5; Abnormal: Above high normal; Units: %; Status: F Test: PLATELET COUNT, AUTOMATED; Value: 207; Range: 150-450; Units: k/mm3; Status: F Test: NEUTROPHILS %; Value: 66.6; Range: 36.0-66.0; Abnormal: Above high normal; Units: %; Status: F Test: LYMPH %; Value: 25.9; Range: 24.0-44.0; Units: %; Status: F Test: MONO %; Value: 3.6; Range: 0.0-5.0; Units: %; Status: F Test: EOS %; Value: 0.8; Range: 0.0-3.0; Units: %; Status: F Test: BASO %; Value: 0.8; Range: 0.0-1.0; Units: %; Status: F Test: LARGE UNSTAINED CELL %; Value: 2.3; Range: 0.0-4.0; Units: %; Status: F Test: NEUTROPHILS #; Value: 3.5; Range: 1.8-7.7; Units: K/mm3; Status: F Test: LYMPH #; Value: 1.5; Range: 1.5-4.5; Units: K/mm3; Status: F Test: MONO #; Value: 0.2; Range: 0.0-0.8; Units: K/mm3; Status: F Test: EOS #; Value: 0.0; Range: 0.0-0.50; Units: K/mm3; Status: F Test: BASO #; Value: 0.0; Range: 0.0-0.2; Units: K/mm3; Status: F Test: LARGE UNSTAINED CELL #; Value: 0.1; Range: 0.0-0.4; Units: K/mm3; Status: F Lab Order: Cardiac Injury Profile; SPEC'M 11/19/16 15:35 Test: CPK CREATINE PHOSPHOKINASE; Value: 216; Range: 39-308; Units: U/L; Status: F Test: CK-MB VALUE MASS; Value: 1.6; Range: 0.0-3.6; Units: NG/ML; Status: F Test: MB/CK RELATIVE INDEX; Value: 0.74; Range: < OR =4; Status: F Test Note: ; DIAGNOSIS CRITERIA MMB ng/ml Relative Index (RI) NON-AMI < or = 5 N/A GOMEZ ZONE > 5 < or = 4 AMI > 5 > 4 Lab Order: Prothrombin Time Profile\\E\\INR; SPEC'M 11/19/16 15:35 Test: PROTHROMBIN TIME; Value: 13.4; Range: 12.3-14.5; Units: SECONDS; Status: F Test: INR; Value: 1.01; Status: F Test Note: ; THERAPUTIC HUMAN INR VALUES INDICATIONS NORMAL RANGES PROPHYLAXIS/TREATMENT OF: VENOUS THROMBOSIS 2.0-3.0 PULMONARY EMBOLISM 2.0-3.0 PREVENTION OF SYSTEMIC EMBOLISM FROM: TISSUE HEART VALVES 2.0-3.0 ACUTE MYOCARDIAL INFARCTION 2.0-3.0 VALVULAR HEART DISEASE 2.0-3.0 ATRIAL FIBRILLATION 2.0-3.0 MECHANICAL VALVES(HIGH RISK) 2.5-3.5 RECURRENT MYOCARDIAL INFARCTION 2.5-3.5 Lab Order: Troponin; SPEC11/19/16 15:35 Test: TROPONIN I; Value: < 0.02; Range: < 0.10; Units: NG/ML; Status: F Test Note: ; Troponin I Reference Interval for Siemens Xyo LOCI: 99th Percentile= 0.00-0.045 ng/ml Risk Stratification: <= 0.10 ng/ml Decreased Risk for Adverse Clinical Events. 0.10-1.50 ng/ml Increased Risk for Adverse Clinical Events. Evaluation of additional criterion and/or repeat testing in 2-6 hours is suggested to rule out myocardial damage. >= 1.50 ng/ml Indicative of Myocardial Injury. Lab Order: CARDIAC MARKER PANEL; SPEC11/19/16 18:50 Test: CPK CREATINE PHOSPHOKINASE; Value: 174; Range: 39-308; Units: U/L; Status: F Test: CK-MB VALUE MASS; Value: 1.5; Range: 0.0-3.6; Units: NG/ML; Status: F Test: MB/CK RELATIVE INDEX; Value: 0.86; Range: < OR =4; Status: F Test: TROPONIN I; Value: < 0.02; Range: < 0.10; Units: NG/ML; Status: F Test Note: ; DIAGNOSIS CRITERIA MMB ng/ml Relative Index (RI) NON-AMI < or = 5 N/A GOMEZ ZONE > 5 < or = 4 AMI > 5 > 4 Lab Order: Fingerstick Blood Sugar; SPEC11/19/16 17:01 Test: BEDSIDE GLUCOSE; Value: 120; Range: 80-115; Abnormal: Above high normal; Units: MG/DL; Status: F Radiology Order: EKG-ADULT Test: EKG-ADULT REASON FOR EXAMINATION: Chest Pain; Stationary ECG Study; [facility] - ED; ; Test Date: 2016-11-19; Pat Name: SINGH VILLARREAL Department:; Room: -; Gender: M Aircraft Maintenance Technician: ledy; : 1950 Requested By: KATIA Jeff; Order Number: [id number] Reading MD: Melanie Mayo; Measurements; Intervals [place]; Rate: 73 P: 7; [place]: 160 QRS: -5; QRSD: 97 T: 4; QT: 402; QTc: 444; Interpretive Statements; SINUS RHYTHM; MODERATE VOLTAGE CRITERIA FOR LVH, CONSIDER NORMAL VARIANT; INFERIOR MYOCARDIAL INFARCTION, PROBABLY OLD; NSTTW ABNORMALITY; NO PRIOR FOR COMPARISON; Electronically Signed On 11-20-2016 8:08:12 EST by Melanie Mayo; Radiology Order: Chest, 2 View (pa\\E\\lat) Test: Chest, 2 View (pa\\E\\lat) REASON FOR EXAMINATION: Chest Pain; Clinical: Chest pain.; ; Technique: PA and lateral.; ; Comparison: None.; ; Findings:; Chronic-appearing changes suggested with superimposed bilateral scattered; atelectasis. Likely chronic elevation of the right hemidiaphragm. No; pneumothorax. No definite effusion. Skeletal structures intact. Visualized; mediastinum and cardiac silhouette normal.; ; Impression:; Chronic-appearing changes with suspected superimposed scattered atelectasis.; ; ; Signed by; Jean Evans MD 11/19/2016 05:00 P; Radiology Order: ECG WITH READING ER PHYS Test: ECG WITH READING ER PHYS REASON FOR EXAMINATION: CHEST PAIN; Stationary ECG Study; [facility] - ED; ; Test Date: 2016-11-19; Pat Name: SINGH VILLARREAL Department:; Room: -; Gender: M Aircraft Maintenance Technician: ledy; : 1950 Requested By: CASTILLO MESA; Order Number: [id number] Reading MD: Melanie Mayo; Measurements; Intervals [place]; Rate: 63 P: 18; [place]: 201 QRS: -5; QRSD: 92 T: 11; QT: 421; QTc: 433; Interpretive Statements; SINUS RHYTHM; MODERATE VOLTAGE CRITERIA FOR LVH, CONSIDER NORMAL VARIANT; ?INFERIOR [place], OLD; NSTTW ABNORMALITY; DECREASED RATE 11/19/16; Electronically Signed On 11-20-2016 8:12:27 EST by Melanie Mayo; Outcome: 20:03 Discharge ordered by Provider. ke 20:14 Discharge Assessment: Patient awake, alert and oriented x 3. No cognitive and/or ka4 functional deficits noted. Patient verbalized understanding of disposition instructions. patient administered narcotics - no. The following High Risk Discharge criteria are identified: None. Discharged to home ambulatory. Condition: good. Discharge instructions given to patient, Instructed on discharge instructions, follow up and referral plans. medication usage, Demonstrated understanding of instructions, medications, Pt was receptive of discharge instructions/ teaching. Property :Personal belongings accompany Pt. 20:16 No special radiology studies were completed. ka4 20:17 Patient left the ED. ka4 Signatures: Dispatcher [employer] EDMS Sharath Martinez,RN RN Moris Gonzalez, RN RN cz Malaika Dubon, Reg Reg gb Castillo Atkins, VP INTEGRATION VP INTEGRATION ke Quinn Rapp, DRIVER SALES DRIVER SALES dd6 Karen Sutton, RN RN hs1 Kelly Redding LPN BLEACHING SUPERVISOR ka4 Lesa Dodson,RN RN ko2 Blanca Maria,RN RN ms18 Lorelei Hardin,RN RN tanya3 Jemima Maguire gjb Elizabeth Breaux, Reg Reg hs2 Amanda Navarro, DRIVER SALES DRIVER SALES cln Saskia Robbins nb2 Chart Complete MTDD
--- NOTE | 2016-11-21 21:18 | EDDOCDS ---
Physician Documentation [facility] Name: Singh Villarreal Age: 66 yrs Sex: Male : 1950 Arrival Date: 11/19/2016 Time: 15:19 Bed D1 Private MD: Unknown, Family Dr Disposition: 11/19/16 20:03 Discharged to Home/Self Care. Impression: Vertigo of central origin, Chest pain, unspecified. - Condition is Stable. - Discharge Instructions: Nonspecific Chest Pain, Vertigo. - Prescriptions for Meclizine 25 mg Oral Tablet - take 1 tablet by ORAL route every 8 hours As needed; 30 tablet. - Medication Reconciliation, Local Pharmacy Hours form. - Follow up: Private Physician; When: Call to arrange an appointment; Reason: Recheck today's complaints, Continuance of care. Follow up: Lei Chavez MD; When: Call to arrange an appointment; Reason: Further diagnostic work-up, Continuance of care. - Problem is new. - Symptoms are unchanged. Historical: - Allergies: Lisinopril; - Home Meds: 1. metformin 850 mg Oral tab 1 tab 2 times per day 2. omeprazole 20 mg Oral cpDR 1 cap once daily 3. Lipitor 10 mg Oral tab 1 tab once daily - PMHx: Diabetes - NIDDM: controlled; GERD; High Cholesterol; - PSHx: nasal surgery; - Social history: Smoking status: Patient states was never smoker of tobacco. No barriers to communication noted, The patient speaks fluent Faroese. - Family history: Not pertinent. - : The pt / caregiver states he / she is not on anticoagulants. Home medication list is obtained from the patient. - Exposure Risk Screening:: None identified. Vital Signs: 11/19 15:21 BP 161 / 81; Pulse 75; Resp 18 S; Temp 97.2; Pulse Ox 98% on R/A; Weight 87.09 kg / 192 dd6 lbs (R); Height 5 ft. 8 in. (172.72 cm) (R); 17:00 Pulse 68 MON; Pulse Ox 97% ; ko2 17:01 BP 178 / 90 (auto/); ko2 17:16 BP 172 / 86 (auto/); ko2 17:16 Pulse 70 MON; Pulse Ox 97% ; ko2 17:31 BP 164 / 83 (auto/); ko2 17:31 Pulse 68 MON; Pulse Ox 97% ; ko2 17:46 BP 180 / 86 (auto/); ko2 17:46 Pulse 68 MON; Pulse Ox 98% ; ko2 18:01 BP 149 / 85 (auto/); ko2 18:01 Pulse 64 MON; Pulse Ox 98% ; ko2 18:15 Pulse 70 MON; Pulse Ox 97% ; ko2 18:16 BP 160 / 90 (auto/); ko2 18:31 BP 156 / 88 (auto/); ko2 18:31 Pulse 62 MON; Pulse Ox 96% ; ko2 19:00 Pulse 66 MON; Pulse Ox 97% ; ko2 19:01 BP 143 / 76 (auto/); ko2 19:02 BP 145 / 78 (auto/); ko2 19:02 Pulse 66 MON; Pulse Ox 96% ; ko2 19:16 Pulse 68 MON; Pulse Ox 96% ; ko2 19:17 BP 153 / 77 (auto/); ko2 19:32 BP 142 / 68 (auto/); ko2 19:32 Pulse 66 MON; Pulse Ox 96% ; ko2 20:07 BP 144 / 75 RA Sitting (auto/reg); Pulse 69 MON; Resp 22 S; Temp 97.2(T); Pulse Ox 97% cln on R/A; Pain 0/10; 15:21 Body Mass Index 29.19 (87.09 kg, 172.72 cm) dd6 MDM: 15:26 ECG WITH READING ER PHYS+CARDIAG ordered. EDMS 16:29 Aspirin Chewable Tablet 324 mg PO once ordered. ke 16:29 Workers' Compensation Hearings Officer/Pulse Ox/q 30 min VS ordered. ke 16:29 IV Saline Lock ordered. ke 16:29 Rhythm Strip to chart ordered. ke 16:29 Undress patient appropriately for examination ordered. ke 16:29 Accucheck ordered. ke 16:29 NS 0.9% 1000 ml IV at 100 mL/hr continuous ordered. ke 16:30 Basic Metabolic Profile Ordered. EDMS 16:30 CBC with Diff Ordered. EDMS 16:30 Cardiac Injury Profile Ordered. EDMS 16:30 Prothrombin Time Profile\E\INR Ordered. EDMS 16:30 Troponin Ordered. EDMS 16:31 Chest, 2 View (pa\E\lat) Ordered. EDMS 17:02 Basic Metabolic Profile Reviewed. ke 17:02 CBC with Diff Reviewed. ke 17:02 Cardiac Injury Profile Reviewed. ke 17:02 Prothrombin Time Profile\E\INR Reviewed. ke 17:02 Troponin Reviewed. ke 17:03 Meclizine 50 mg PO once ordered. ke 17:04 Redraw CIP &Troponin (put time in details section) ordered. ke 17:04 Repeat EKG (put time details section) ordered. ke 17:05 Redraw CIP &Troponin (put time in details section) complete. deg 17:05 Repeat EKG (put time details section) complete. deg 17:06 ECG WITH READING ER PHYS ordered. EDMS 17:07 CARDIAC MARKER PANEL Ordered. EDMS 17:52 Financial registration complete. gjb 18:00 [facility] [place] Payment Agreement was scanned into [employer] and attached to record. gjb 19:59 Fingerstick Blood Sugar Reviewed. ke 19:59 CARDIAC MARKER PANEL Reviewed. ke 19:59 Chest, 2 View (pa\E\lat) Reviewed. ke 11/20 03:47 T-Sheet-- Draft Copy was scanned into [employer] and attached to record. hs2 10:26 ECG/EKG was scanned into [employer] and attached to record. gb Administered Medications: 11/19 16:54 Drug: NS 0.9% 1000 ml [sodium chloride 0.9 % intravenous solution] Route: IV; Rate: 100 hs1 mL/hr; Site: right antecubital; 20:15 Follow up: Rate change bolus; IV Status: Completed infusion; IV Intake: 1000ml ka4 16:55 Drug: Aspirin 324 mg [aspirin 81 mg chewable tablet (4 tabs)] Route: PO; hs1 17:24 Drug: Meclizine 50 mg [meclizine 12.5 mg tablet (4 tabs)] Route: PO; kc3 20:15 Follow up: Response: No Adverse Reaction ka4 Signatures: Dispatcher [employer] EDMS Julia Baltazar, Photographic Plate Maker Unit deg Malaika Dubon, Reg Reg gb Castillo Atkins, RADIO INTERFERENCE EXPERT RADIO INTERFERENCE EXPERT Kelly Wallace,SPORTS MEDIA SPORTS MEDIA ka4 Blanca Maria,SERGIO RN ms18 Jemima Maguire gjb Elizabeth Breaux, Reg Reg hs2 Karen Sutton RN hs1 Lorelei Hardin RN kc3 The chart was reviewed and I authenticate all verbal orders and agree with the evaluation and treatment provided.Attachments: 18:00 [facility] Payment Agreement gjb 11/20 03:47 T-Sheet-- Draft Copy hs2 10:26 ECG/EKG gb Chart Complete MTDD
== END 2016-11-19 20:17 | disposition home or self-care (01) ==
LOC: M ED 15:19
DX: R42 Dizziness and giddiness (principal); E11.9 Type 2 diabetes mellitus without complications; K21.9 Gastro-esophageal reflux disease without esophagitis; E78.00 Pure hypercholesterolemia, unspecified; Z79.899 Other long term (current) drug therapy; Z88.8 Allergy status to other drugs, medicaments and biological substances